=== PATIENT | male | born 1940 | race African-American/Black ===

== ENCOUNTER 2024-05-14 10:05 | Outpatient (CLI) | payer MEDICARE ==
[2024-05-14] MEDS ORDERED: Magnevist 469MG/ML 20 ML VIAL ONE (10:19)
== END 2024-05-14 10:06 | disposition home or self-care (01) ==
LOC: CSHMRI 10:05
PROVIDERS: ATTEND Urology
DX: R97.20 Elevated prostate specific antigen [PSA] (principal); N40.0 Benign prostatic hyperplasia without lower urinary tract symptoms
CPT/HCPCS: 72197; 82565